=== PATIENT | male | born 1950 | race Caucasian/White ===

== ENCOUNTER 2018-07-26 18:54 | Inpatient (IN) | payer MEDICARE, OTHER, BC | END 2018-07-29 12:45 | disposition still patient (30) | LOC: ER 18:54 → ED HOLD 07-27 02:23 → ORTHO 4S 07-27 03:17 | PROC: 0W9G3ZZ Drainage of Peritoneal Cavity, Percutaneous Approach (ICD-10-PCS; principal; ~2018-07-26) | DX: E11.649 Type 2 diabetes mellitus with hypoglycemia without coma (principal); R18.8 Other ascites; K74.60 Unspecified cirrhosis of liver ==

== ENCOUNTER 2018-10-14 13:30 | Emergency (ER) | payer MEDICARE, OTHER ==
[~2018-10-14] VITALS: Ht 172.7 cm; Wt 100.0 kg
[~2018-10-14 13:30] MED LIST: ALLO100T PO; BESI5DRO RIGHTEYE; BROM3DRO RIGHTEYE; CEPH250C PO; FURO-149 PO; LISI-600 PO; LOTE5GEL RIGHTEYE; MAGN250T29 PO; QUELT PO; SPIR100T5 PO; TOLT4CAP14 PO; VEDO300V IV
[2018-10-14] MEDS ORDERED: LIDOcaine 1% w/epiNEPHrine 1:200,000 30ml vial IM ONE (14:40)
[2018-10-14] MEDS ORDERED: FURO-150 PO (16:58)
[2018-10-14] MEDS ORDERED: SPIR50TA5 PO (16:58)
[2018-10-14 17:07] VITALS: BP 121/61
== END 2018-10-14 17:09 | disposition home or self-care (01) ==
LOC: ER 13:31
DX: R18.8 Other ascites (principal); R06.02 Shortness of breath; Z79.899 Other long term (current) drug therapy
CPT/HCPCS: 71250; 74176; 99284